=== PATIENT | female | born 1965 | race Caucasian/White ===

== ENCOUNTER 2017-11-17 15:51 | Emergency (ER) | payer MEDICARE, MEDICAID ==
[2017-11-17] MEDS ORDERED: HYDROCODONE/ACETAMINOPHEN 5-325 MG TABLET PO ONE (16:27)
--- NOTE | 2017-11-17 16:57 | RADIOLOGY REPORT (SQ) ---
EXAM DESCRIPTION: CT CHEST WITHOUT COMPLETED DATE/TIME: 11/17/2017 4:43 pm REASON FOR STUDY: fall OnXeralto for Blood clots/co of sob COMPARISON: CT lumbar spine same date TECHNIQUE: CT scan performed of the chest without intravenous contrast. Images reviewed with lung, soft tissue and bone windows. Reconstructed coronal and sagittal MPR images reviewed. All images st ored on PACS. All CT scanners at this facility use dose modulation, iterative reconstruction, and/or weight based d osing when appropriate to reduce radiation dose to as low as reasonably achievable (ALARA). [facility]: Dose Right [facility]: CareDose [facility]: Dose Right [facility]: Teradose 4D [facility]: Smart [employer] RADIATION DOSE: CT Rad equipment meets quality standard of care and radiation dose reduction techniq ues were employed. CTDIvol: 12.2 mGy. DLP: 478 mGy-cm. mGy. LIMITATIONS: No technical limitations. FINDINGS: LUNGS AND PLEURA: No masses, infiltrates, pneumothorax. No pleural effusions, calcificati ons. 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 No a denopathy or masses. Small hiatal hernia with distal esophageal wall thickening. HEART AND VASCULAR STRUCTURES: No aneurysm. No pericardial effusion. Duplicated superior vena cava UPPER ABDOMEN: Profound fatty infiltration of the liver. Mild splenomegaly. Post cholecystectomy THYROID AND OTHER SOFT TISSUES: No masses. No adenopathy. BONES: Healing right lateral 4th rib fracture with surrounding bony callus axial image 22. HARDWARE: None in the chest. OTHER: No other significant findings. IMPRESSION: No acute changes. Healing right lateral 4th rib fracture Profound fatty infiltration of the liver, post cholecystectomy, splenomegaly TECHNICAL DOCUMENTATION: JOB ID: [id number] Quality ID # [id number]: Final reports with documentation of one or more dose reduction techniques (e.g., Au tomated exposure control, adjustment of the mA and/or kV according to patient size, use of iterative reconstruction technique) 2010 [employer]- All Rights Reserved
--- NOTE | 2017-11-17 17:02 | RADIOLOGY REPORT (SQ) ---
EXAM DESCRIPTION: CT LUMBAR SPINE WITHOUT COMPLETED DATE/TIME: 11/17/2017 4:43 pm REASON FOR STUDY: hx of low back problems increased pain from fall COMPARISON: CT chest same date TECHNIQUE: Axial images acquired through the lumbar spine without intravenous contrast. Images revi ewed with lung, soft tissue and bone windows. Reconstructed coronal and sagittal MPR images reviewed . All images stored on PACS. All CT scanners at this facility use dose modulation, iterative reconstruction, and/or weight based d osing when appropriate to reduce radiation dose to as low as reasonably achievable (ALARA). [facility]: Dose Right [facility]: CareDose [facility]: Dose Right [facility]: Teradose 4D [facility]: [employer] RADIATION DOSE: 27.1 mGy. LIMITATIONS: None. FINDINGS: SEGMENTATION: Normal. No transitional anatomy. ALIGNMENT: Normal. VERTEBRAL BODIES: No fractures. No dislocation. No acute findings. DISCS: No significant protrusions. Study limited by lack of intrathecal contrast. PEDICLES, TRANSVERSE PROCESSES: An old healed right L3 transverse process fracture is evident on axia l image 46 FACETS, POSTERIOR ELEMENTS: No fractures. No dislocation. Bilateral facet arthropathy at L3-4, L4-5 , and L5-S1. HARDWARE: None in the spine. VISUALIZED RIBS: No fractures. SOFT TISSUES: No significant or acute finding in adjacent soft tissues. OTHER: No retroperitoneal hemorrhage IMPRESSION: No acute findings. Old right L3 transverse process healed fracture. TECHNICAL DOCUMENTATION: JOB ID: [id number] Quality ID # [id number]: Final reports with documentation of one or more dose reduction techniques (e.g., Au tomated exposure control, adjustment of the mA and/or kV according to patient size, use of iterative reconstruction technique) 2010 [employer]- All Rights Reserved
--- NOTE | 2017-11-17 17:34 | RADIOLOGY REPORT (SQ) ---
EXAM DESCRIPTION: KNEE RIGHT 3 VIEWS COMPLETED DATE/TIME: 11/17/2017 5:25 pm REASON FOR STUDY: fall COMPARISON: None. NUMBER OF VIEWS: Three views. TECHNIQUE: AP, lateral, and sunrise patella radiographic images acquired of the right knee. LIMITATIONS: None. FINDINGS: MINERALIZATION: Normal. BONES: No acute fracture or dislocation. No worrisome bone lesions. JOINT: No effusion. SOFT TISSUES: No soft tissue swelling. No radio-opaque foreign body. OTHER: No other significant finding. IMPRESSION: NEGATIVE STUDY OF THE RIGHT KNEE. NO RADIOGRAPHIC EVIDENCE OF ACUTE INJURY. TECHNICAL DOCUMENTATION: JOB ID: [id number] [employer]- All Rights Reserved
[2017-11-17 19:01] VITALS: BP 129/91
--- NOTE | 2017-11-17 19:04 | ER Document Report ---
ED Fall - General Chief Complaint: Knee Injury Stated Complaint: FALL/KNEE AND BACK PAIN Time Seen by Provider: 11/17/17 16:22 Mode of Arrival: Wheelchair Notes: Patient is a 52-year-old morbidly obese white female comes to emergency room complaining of sustaining a fall last evening. Patient states she lives in an apartment and she was coming down the steps of the apartment in her right knee gave out on her and she fell falling backwards landing on the low back and mid back area. Patient denies any loss of consciousness or hitting her head and states the pain is getting more severe. She also said she does move this area 2 weeks ago and has not established with a physician yet. She has a history of chronic back pain but it has not never been this bad. She also denies any neck pain. She has had no loss of urine or stool. States she has a history of hypertension and some psych problems as far as she is diagnosed with paranoid schizophrenia and depression. She also states she is on Xarelto for blood clots. TRAVEL OUTSIDE OF THE [place] IN LAST 30 DAYS: No - HPI Patient complains to provider of: Back pain Occurred: Yesterday Where: Home Context: Fell from standing Associated symptoms: denies: None, Lost consciousness, Dazed/confused, Seizure, Difficulty breathing, Difficulty walking, Became dizzy/fainted, Blood in stool, Other Location of injury/pain: Back, Knee, Lower extremity Quality of pain: Achy, Sharp Severity: Moderate Pain Level: 3 - Related data Allergies/Adverse Reactions: No Known Allergies Allergy (Unverified 11/17/17 15:56) Past Medical History - General Information source: Patient - Social History Smoking Status: Current Every Day Smoker Cigarette use (# per day): Yes - 2 packs a day Chew tobacco use (# tins/day): No Smoking Education Provided: Yes Frequency of alcohol use: None Drug Abuse: None Lives with: Spouse/Significant other Family History: Reviewed & Not Pertinent Patient has suicidal ideation: No Patient has homicidal ideation: No - Past Medical History Cardiac Medical History: Reports: Hx Hypertension Pulmonary Medical History: Reports: Hx Asthma Renal/ Medical History: Denies: Hx Peritoneal Dialysis Past Surgical History: Reports: Hx Section - x2, Hx Cholecystectomy Review of Systems - Review of Systems Constitutional: No symptoms reported EENT: No symptoms reported Cardiovascular: No symptoms reported Respiratory: No symptoms reported Gastrointestinal: No symptoms reported Genitourinary: No symptoms reported Female Genitourinary: No symptoms reported Musculoskeletal: Back pain, Joint pain, Muscle pain Skin: No symptoms reported Hematologic/Lymphatic: No symptoms reported Neurological/Psychological: No symptoms reported Physical Exam - Vital signs Vitals: Temp Pulse Resp BP Pulse Ox 97.6 F 101 H 20 147/90 H 99 11/17/17 15:59 11/17/17 15:59 11/17/17 15:59 11/17/17 15:59 11/17/17 15:59 Interpretation: Hypertensive, Tachycardic - General General appearance: Alert - Uncomfortable appearing - Respiratory Respiratory status: No respiratory distress Chest status: Nontender Breath sounds: Decreased air movement. No: Normal, Nonproductive cough, Productive cough, Rales, Rhonchi, Stridor, Wheezing, Other Chest palpation: Tender, Other - Physical exam patient's chest area shows that she has some reproducible tenderness on the right side laterally about the fourth fifth sixth or seventh rib. - Cardiovascular Rhythm: Tachycardia Heart sounds: Normal auscultation Murmur: No - Abdominal Inspection: Normal Distension: No distension Bowel sounds: Normal Tenderness: Nontender Organomegaly: No organomegaly - Back Back: Tender, Other - Physical exam patient's back shows she has some reproducible tenderness paravertebral E around the lower thoracic area and the upper to mid lumbar range. She has been mildly reproducible tenderness to palpation in the same areas. There is no sign of ecchymosis or abrasions. Patient has difficulty in rotation right and left as well as flexion and extension. This is all secondary to discomfort and pain. Patient has good DTRs in the lower extremities she has good vascular flow with good dorsalis pedal pulses noted. Patient also has positive straight leg raises bilaterally. This appears to be due to secondary to the low back discomfort from her fall. - Extremities General upper extremity: Normal inspection, Normal ROM General lower extremity: Tender. No: Normal inspection, Nontender, Edema, Normal color, Normal ROM, Normal strength, Normal temperature, Normal weight bearing, Lindsey's sign, Other Knee: Tender. No: Normal, Nontender, Abrasion, Deformity, Drawer's test instability - Examination patient's right knee shows no swelling or edema. There is no discoloration no ecchymosis no abrasions. There is no tenderness to palpation on the patella patient has no laxity in any direction. She has anterior drawer is also negative. Patient has a good popliteal pulse., Dislocation, Ecchymosis, Joint effusion, Instability, Laxity with valgus stress , Laxity with varus stress, Laceration, Pain with ROM, Patellar tendon intact, Popliteal fossa tender, Tender joint line, Unable to bear weight, Other - Neurological Neuro grossly intact: Yes Cognition: Normal Orientation: AAOx4 [place] Coma Scale Eye Opening: Spontaneous [place] Coma Scale Verbal: Oriented [place] Coma Scale Motor: Obeys Commands [place] Coma Scale Total: 15 Speech: Normal Motor strength normal: LUE, RUE, LLE, RLE Sensory: Normal - Skin Skin Temperature: Warm Skin Moisture: Dry Skin Color: Normal, [place], Other - Examination patient's torso without clothing and the way shows there to be no signs of ecchymosis, abrasions or any other acute findings. Course - Vital Signs Vital signs: Temp Pulse Resp BP Pulse Ox 98.6 F 99 21 H 129/91 H 95 11/17/17 19:01 11/17/17 19:01 11/17/17 19:01 11/17/17 19:01 11/17/17 19:01 - Diagnostic Test Radiology reviewed: Reports reviewed - X-ray of the knee was negative. CT of the chest had findings of an old right lateral fourth rib fracture that was healing. And the lumbar spine had an old healing transverse process fracture. - Transfer of Care Notes: 11/17/17 19:16 Patient is new in this vicinity and she comes in with a complaint of a fall. She admits to having a history of back problems and is seeing a physician in the other area of the [place] from. She has not been able to establish with a physician locally as of yet. Patient admitted to the fall a couple of weeks ago. Given this is her first visit here we will go ahead and give her a little pain medication for a couple of days and I have informed her that this will be on time we will do this. Discharge - Discharge Clinical Impression: Lumbosacral injury Qualifiers: Encounter type: initial encounter Qualified Code(s): S39.92XA - Unspecified injury of lower back, initial encounter Low back strain Qualifiers: Encounter type: initial encounter Qualified Code(s): S39.012A - Strain of muscle, fascia and tendon of lower back, initial encounter Thoracic myofascial strain Qualifiers: Encounter type: initial encounter Qualified Code(s): S29.019A - Strain of muscle and tendon of unspecified wall of thorax, initial encounter Contusion of thoracic wall Qualifiers: Encounter type: initial encounter Condition: Good Disposition: HOME, SELF-CARE Instructions: Ice & Elevation ([facility]), Suspected Internal Knee Injury ([facility]), Oral Narcotic Medication ([facility]), Sprained Knee ([facility]) Additional Instructions: Home and rest. Ice to all parts of the body that hurt 3 times a day. Continue all your other medications as prescribed by your physicians.I am writing you a few pain pills and I am not writing it with Tyleol because of your liver. This will be the only time we will do this out of ER. Establish with a physician as soon as possible. Should you have any concerns or problems return to ER for recheck. Prescriptions: Cyclobenzaprine HCl [Flexeril 10 mg Tablet] 10 mg PO TIDP PRN #21 tablet PRN Reason: Oxycodone HCl [Oxycontin Ir 5 Mg Tablet] 1 - 2 mg PO Q4H PRN #15 tablet PRN Reason: For Pain Forms: Elevated Blood Pressure Referrals: AL BROWN MD [Primary Care Provider] - Follow up as needed
== END 2017-11-17 19:30 | disposition home or self-care (01) ==
LOC: ER 15:51
DX: S39.92XA Unspecified injury of lower back, initial encounter (principal); S39.012A Strain of muscle, fascia and tendon of lower back, initial encounter; S29.019A Strain of muscle and tendon of unspecified wall of thorax, initial encounter; M25.569 Pain in unspecified knee; W10.9XXA Fall (on) (from) unspecified stairs and steps, initial encounter; F17.210 Nicotine dependence, cigarettes, uncomplicated; I10 Essential (primary) hypertension
CPT/HCPCS: 99284; 73562; 71250; 72131; A9270

== ENCOUNTER 2017-11-21 16:31 | Emergency (ER) | payer MEDICARE, MEDICAID ==
--- NOTE | 2017-11-21 17:12 | ER Document Report ---
ED Medical Screen (RME) - General Chief Complaint: Rib Pain Stated Complaint: FALL/RIB AND BACK PAIN Time Seen by Provider: 11/21/17 17:09 Mode of Arrival: Ambulatory Information source: Patient Notes: Pt returns today for pain medication. Treated on the for a broken rib, history of back pain, liver pain. No recent injury. Denies fever. Reports trouble holding her bladder, numbness, diarrhea for 5 months. Hurt her back by falling years ago. Has appointment with [facility] TRAVEL OUTSIDE OF THE [place] IN LAST 30 DAYS: No - Related Data Allergies/Adverse Reactions: No Known Allergies Allergy (Verified 11/21/17 16:33) Past Medical History - Past Medical History Cardiac Medical History: Reports: Hx Hypertension Pulmonary Medical History: Reports: Hx Asthma Renal/ Medical History: Denies: Hx Peritoneal Dialysis Past Surgical History: Reports: Hx Section - x2, Hx Cholecystectomy Physical Exam - Vital signs Vitals: Temp Pulse Resp BP Pulse Ox 98.5 F 126 H 18 155/99 H 95 11/21/17 16:36 11/21/17 16:36 11/21/17 16:36 11/21/17 16:36 11/21/17 16:36 Course - Vital Signs Vital signs: Temp Pulse Resp BP Pulse Ox 98.5 F 126 H 18 155/99 H 95 11/21/17 16:36 11/21/17 16:36 11/21/17 16:36 11/21/17 16:36 11/21/17 16:36
--- NOTE | 2017-11-21 19:07 | ER Document Report ---
ED General - General Chief Complaint: Rib Pain Stated Complaint: FALL/RIB AND BACK PAIN Time Seen by Provider: 11/21/17 17:09 Mode of Arrival: Ambulatory TRAVEL OUTSIDE OF THE [place] IN LAST 30 DAYS: No - Related Data Allergies/Adverse Reactions: No Known Allergies Allergy (Verified 11/21/17 16:33) Past Medical History - General Information source: Patient - Social History Family History: Reviewed & Not Pertinent - Past Medical History Cardiac Medical History: Reports: Hx Hypertension Pulmonary Medical History: Reports: Hx Asthma Renal/ Medical History: Denies: Hx Peritoneal Dialysis Past Surgical History: Reports: Hx Section - x2, Hx Cholecystectomy Physical Exam - Vital signs Vitals: Temp Pulse Resp BP Pulse Ox 98.5 F 126 H 18 155/99 H 95 11/21/17 16:36 11/21/17 16:36 11/21/17 16:36 11/21/17 16:36 11/21/17 16:36 Course - Vital Signs Vital signs: Temp Pulse Resp BP Pulse Ox 98.5 F 126 H 18 155/99 H 95 11/21/17 16:36 11/21/17 16:36 11/21/17 16:36 11/21/17 16:36 11/21/17 16:36
--- NOTE | 2017-11-21 19:55 | ER Document Report ---
ED General - General Chief Complaint: Rib Pain Stated Complaint: FALL/RIB AND BACK PAIN Time Seen by Provider: 11/21/17 17:09 Mode of Arrival: Ambulatory Notes: Patient is a 52 year old female who presents with left lateral rib pain that started after she fell on 11/17/17. She states she was seen here on the and was diagnosed with rib fracture as well as old back fractures. She state she just moved to this area and has an appointment with a primary doctor at [facility] on 11/30/17. She state she called this morning to try and get an appointment sooner but was unable to. She is out of her pain medication and is requesting more. She denies any further fever, chills, difficulty breathing, SOB, chest pain, n/v/d. She does endorse compliance with her incentive spirometer. TRAVEL OUTSIDE OF THE [place] IN LAST 30 DAYS: No - Related Data Allergies/Adverse Reactions: No Known Allergies Allergy (Verified 11/21/17 16:33) Past Medical History - General Information source: Patient - Social History Smoking Status: Unknown if Ever Smoked Family History: Reviewed & Not Pertinent Patient has suicidal ideation: No Patient has homicidal ideation: No - Past Medical History Cardiac Medical History: Reports: Hx Hypertension Pulmonary Medical History: Reports: Hx Asthma Renal/ Medical History: Denies: Hx Peritoneal Dialysis Past Surgical History: Reports: Hx Section - x2, Hx Cholecystectomy Review of Systems - Review of Systems Constitutional: See HPI EENT: No symptoms reported Cardiovascular: No symptoms reported Respiratory: No symptoms reported Gastrointestinal: No symptoms reported Genitourinary: No symptoms reported Female Genitourinary: No symptoms reported Musculoskeletal: See HPI Skin: No symptoms reported Hematologic/Lymphatic: See HPI Neurological/Psychological: No symptoms reported Physical Exam - Vital signs Vitals: Temp Pulse Resp BP Pulse Ox 98.5 F 126 H 18 155/99 H 95 11/21/17 16:36 11/21/17 16:36 11/21/17 16:36 11/21/17 16:36 11/21/17 16:36 - Notes Notes: PHYSICAL EXAM: CONSTITUTIONAL: Alert and oriented, well-appearing and in no acute distress. Speaking in full sentences without difficulty. No hypoxia or tachypnea. HENT: Normocephalic, atraumatic. Trachea midline. Uvula midline. Moist mucous membranes. EYES: Pupils equal round and reactive to light, EOM intact. Sclera anicteric, conjunctiva are normal. No entrapment. NECK: supple without lymphadenopathy. No midline tenderness or paraspinous muscle spasms. No step-offs or deformities. ROM intact. HEART: Regular rate and rhythm without murmurs. LUNGS: CTAB and equal. No wheezes, rales or rhonchi. TTP over left lateral ribs in mid-axillary region without step-offs or deformity. GI: Normactive bowel sounds. Nontender, non-distended. No organomegaly. no CVAT. BACK: TTP to paralumbar musculature without midline spinal tenderness, step- offs or deformities, no paraspinous spasm, 5+/5 strengths, DTRs 2+, SLR -. EXTREMITIES: Normal range of motion, no pitting edema. No cyanosis. Cap Refill < 3 seconds. NEURO: Cranial nerves grossly intact. Normal sensory/motor exams. PSYCH: Normal mood, normal affect. SKIN: Warm and dry. Normal turgor. No rashes or lesions noted. Course - Re-evaluation Re-evalutation: 11/21/17 19:55 Patient seen and examined. Mild tachycardia noted but no hypoxia or tachypnea. Speaking in full sentences without difficulty. Lungs CTAB. Feel the tachycardia is most likely due to pain, will obtain CXR however and give pain medication and monitor. 11/21/17 21:15 Signed out patient due to end of shift to Melany Osman NP. Discussed case, current management, all pending lab and imaging studies as well as medications pending. she will complete disposition. - Vital Signs Vital signs: Temp Pulse Resp BP Pulse Ox 98.4 F 90 16 148/92 H 97 11/21/17 21:17 11/21/17 21:17 11/21/17 21:17 11/21/17 21:17 11/21/17 21:17 - Diagnostic Test Radiology reviewed: Image reviewed, Reports reviewed Discharge - Discharge Clinical Impression: Rib fractures Qualifiers: Encounter type: subsequent encounter Rib fracture type: multiple ribs Fracture type: closed Laterality: left Fracture healing: with routine healing Qualified Code(s): S22.42XD - Multiple fractures of ribs, left side, subsequent encounter for fracture with routine healing Lumbosacral injury Qualifiers: Encounter type: subsequent encounter Qualified Code(s): S39.92XD - Unspecified injury of lower back, subsequent encounter Condition: Stable Disposition: HOME, SELF-CARE Additional Instructions: Chronic Pain Control Stress, inactivity, and depression make pain more severe regardless of the cause of the pain. Stress and poor physical condition can cause pain such as headaches and backache. Relaxation: Rest in a quiet place with your eyes closed for 20 minutes twice daily. Concentrate on a pleasant image, or simply "feel" your breathing. Clear your mind. Stress management: Deal with your "stressors." Either take action, or eliminate the stressor from your life. Don't let things hang over you. Accept those things you can't change. Nutrition: Eat small, balanced meals -- don't skip, don't overeat. Meals should be high-carbohydrate, low-sugar, low-fat. Exercise: Exercise helps painful conditions and eases stress. Get 30 minutes of moderate exercise, five days a week. Do an activity that does not flare your pain. Precautions: Pain which continues to disrupt daily activities, or which changes in nature, requires a medical evaluation. Pain Clinic referral is available. We do not manage chronic pain in the Emergency Department. We will try to appropriately help you through an acute flare of your chronic painful condition , but for on-going chronic pain that does not improve, you will need to see your private doctor or [facility]. We do not provide repeated medication management of chronic painful conditions. If you wish, we can provide the name of local pain management physicians. Return if symptoms worsen. Follow up with the provider of your choice as soon as possible. Prescriptions: Oxycodone HCl [Oxycontin Ir 5 Mg Tablet] 1 tab PO Q6HP PRN #12 tablet PRN Reason: For Pain Forms: Elevated Blood Pressure Referrals: LALIT CHACKO MD [Primary Care Provider] - Follow up in 3-5 days
[2017-11-21] MEDS ORDERED: OXYCODONE HCL IR 5 MG TABLET PO ONE (20:00)
[2017-11-21 21:18] VITALS: BP 148/92
--- NOTE | 2017-11-21 21:29 | RADIOLOGY REPORT (SQ) ---
EXAM DESCRIPTION: CHEST PA/LAT COMPLETED DATE/TIME: 11/21/2017 8:28 pm REASON FOR STUDY: rib pain COMPARISON: None. EXAM PARAMETERS: NUMBER OF VIEWS: two views TECHNIQUE: Digital Frontal and Lateral radiographic views of the chest acquired. RADIATION DOSE: NA LIMITATIONS: none FINDINGS: LUNGS AND PLEURA: No opacities, masses or pneumothorax. No pleural effusion. MEDIASTINUM AND HILAR STRUCTURES: No masses or contour abnormalities. HEART AND VASCULAR STRUCTURES: Heart normal size. No evidence for failure. BONES: No acute findings. HARDWARE: Clips right upper quadrant post cholecystectomy OTHER: No other significant finding. IMPRESSION: NO SIGNIFICANT RADIOGRAPHIC FINDING IN THE CHEST. TECHNICAL DOCUMENTATION: JOB ID: [id number] [employer]- All Rights Reserved
== END 2017-11-21 22:18 | disposition home or self-care (01) ==
LOC: ER 16:31
DX: S22.42XD Multiple fractures of ribs, left side, subsequent encounter for fracture with routine healing (principal); S39.92XD Unspecified injury of lower back, subsequent encounter; R07.81 Pleurodynia; M54.9 Dorsalgia, unspecified; W19.XXXD Unspecified fall, subsequent encounter
CPT/HCPCS: 99283; 71046; A9270

== ENCOUNTER 2018-04-14 21:06 | Emergency (ER) | payer MEDICARE, MEDICAID ==
[2018-04-14] MEDS ORDERED: RISPERIDONE 1 MG TABLET PO ONE (23:02)
--- NOTE | 2018-04-14 23:06 | ER Document Report ---
ED General - General Chief Complaint: Psych Problem Stated Complaint: HEARING VOICES Time Seen by Provider: 04/14/18 22:09 Notes: Patient is a 52-year-old female with a past medical history of schizophrenia currently who takes risperidone to manage her symptoms she reports with auditory hallucinations for the past 24 hours. Patient reports that typically her schizophrenia is very well controlled with this medication and admits to occasionally missing it but not in the recent past. He states the day she was lying in bed and she heard the sounds of a baby laughing or giggling. She states when she tried to sit up to see where the noise is coming from she could not find anything and also felt like she could hardly get out of bed. She states that since that time her symptoms have resolved and she is no longer hearing any more auditory hallucinations. She denies that the auditory hallucinations are commanding. She denies any suicidal or homicidal ideation. She is scheduled to see her psychiatrist on 27 April came to the emergency department due to concerns that she name may need medication adjustments before that date. TRAVEL OUTSIDE OF THE [place] IN LAST 30 DAYS: No - Related Data Allergies/Adverse Reactions: No Known Allergies Allergy (Verified 11/21/17 16:33) Past Medical History - General Information source: Patient - Social History Smoking Status: Current Every Day Smoker Chew tobacco use (# tins/day): No Frequency of alcohol use: None Drug Abuse: None Lives with: Spouse/Significant other Family History: Reviewed & Not Pertinent Patient has suicidal ideation: No Patient has homicidal ideation: No - Past Medical History Cardiac Medical History: Reports: Hx Hypertension Pulmonary Medical History: Reports: Hx Asthma Renal/ Medical History: Denies: Hx Peritoneal Dialysis GI Medical History: Reports: Hx Gastroesophageal Reflux Disease Psychiatric Medical History: Reports: Hx Depression, Hx Schizophrenia Past Surgical History: Reports: Hx Section - x2, Hx Cholecystectomy Review of Systems - Review of Systems Notes: Constitutional: Negative for fever. HENT: Negative for sore throat. Eyes: Negative for visual changes. Cardiovascular: Negative for chest pain. Respiratory: Negative for shortness of breath. Gastrointestinal: Negative for abdominal pain, vomiting or diarrhea. Genitourinary: Negative for dysuria. Musculoskeletal: Negative for back pain. Skin: Negative for rash. Neurological: Negative for headaches, weakness or numbness. 10 point ROS negative except as marked above and in HPI. Physical Exam - Vital signs Vitals: Temp Pulse Resp BP Pulse Ox 99.0 F 95 16 133/78 H 97 04/14/18 21:35 04/14/18 21:35 04/14/18 21:35 04/14/18 21:35 04/14/18 21:35 Interpretation: Normal Notes: PHYSICAL EXAMINATION: GENERAL: Well-appearing, well-nourished and in no acute distress. HEAD: Atraumatic, normocephalic. EYES: Pupils equal round and reactive to light, extraocular movements intact, sclera anicteric, conjunctiva are normal. ENT: nares patent, oropharynx clear without exudates. Moist mucous membranes. NECK: Normal range of motion, supple without lymphadenopathy LUNGS: Breath sounds clear to auscultation bilaterally and equal. No wheezes rales or rhonchi. HEART: Regular rate and rhythm without murmurs ABDOMEN: Soft, nontender, normoactive bowel sounds. No guarding, no rebound. No masses appreciated. EXTREMITIES: Normal range of motion, no pitting or edema. No cyanosis. NEUROLOGICAL: No focal neurological deficits. Moves all extremities spontaneously and on command. PSYCH: Normal mood, normal affect. SKIN: Warm, Dry, normal turgor, no rashes or lesions noted. Course - Re-evaluation Re-evalutation: 04/14/18 23:05 Patient presents with having auditory hallucinations today. She has a known history of schizophrenia although states that she has otherwise been well controlled over the past several years. She does take risperidone 3 mg nightly. She denies any acute suicidal or homicidal ideation. She denies any commands and auditory hallucinations and denies any other concerns other than these new onset hallucinations. No visual hallucinations. The patient is alert , oriented, has appropriate insight, mood and judgment. She is calm and cooperative and is clearly forward thinking and trying to address this issue quickly before her psychiatric appointment on April 27. I have changed her to having a dosing of risperidone 2 mg twice daily and have encouraged her to begin this regiment immediately. I have represcribed risperidone and have made this medication change clear to the patient. At this time will discharge with return precautions and follow-up recommendations. Verbal discharge instructions given a the bedside and opportunity for questions given. Medication warnings reviewed. Patient is in agreement with this plan and has verbalized understanding of return precautions and the need for primary care follow-up in the next 24-72 hours. - Vital Signs Vital signs: Temp Pulse Resp BP Pulse Ox 98.1 F 93 16 122/77 98 04/14/18 23:24 04/14/18 23:24 04/14/18 23:24 04/14/18 23:24 04/14/18 23:24 Discharge - Discharge Clinical Impression: Auditory hallucinations Schizophrenia Qualifiers: Schizophrenia type: unspecified Qualified Code(s): F20.9 - Schizophrenia, unspecified Condition: Good Disposition: HOME, SELF-CARE Additional Instructions: Please change your risperidone from 3 mg nightly to 2 mg twice daily. I would advise you to take this medicine in the morning and then again before you go to bed. Please follow-up with your psychiatrist as scheduled. Please return if you have thoughts of wanting to hurt yourself, hurt others, or have any other symptoms that are concerning to you. Prescriptions: Risperidone [Risperdal 1 mg Tablet] 2 mg PO Q12 #120 tablet
[2018-04-14 23:25] VITALS: BP 122/77
--- NOTE | 2018-04-15 08:47 | EKG REPORT ---
SEVERITY:- ABNORMAL ECG - SINUS RHYTHM BORDERLINE T ABNORMALITIES, ANT-LAT LEADS PROLONGED QT INTERVAL : Confirmed by: Luis Shields MD 15-Apr-2018 08:46:32
== END 2018-04-14 23:25 | disposition home or self-care (01) ==
LOC: ER 21:06
DX: F20.9 Schizophrenia, unspecified (principal); Z79.899 Other long term (current) drug therapy; I10 Essential (primary) hypertension; J45.909 Unspecified asthma, uncomplicated; F17.200 Nicotine dependence, unspecified, uncomplicated
CPT/HCPCS: 93005; 99284; 93010; A9270

== ENCOUNTER 2018-04-16 15:04 | Emergency (ER) | payer MEDICARE, MEDICAID ==
[2018-04-16] MEDS ORDERED: NORMAL SALINE 1000 ML 1,000 ML IV ONE ×2 (16:03→16:36)
[2018-04-16] MEDS ORDERED: METOCLOPRAMIDE HCL INJ/PF 10 MG/2 ML SDV IV ONE (16:03)
--- NOTE | 2018-04-16 16:04 | ER Document Report ---
ED Medical Screen (RME) - General Chief Complaint: Abdominal Pain Stated Complaint: ABDOMINAL PAIN,HEAD PAIN Time Seen by Provider: 04/16/18 15:56 Mode of Arrival: Ambulatory Information source: Patient Notes: 52-year-old female history of schizophrenia who is here 2 days prior for mental health issues presents with complaints of headache this been ongoing for a few days and then abdominal pain started yesterday. Patient states it hurts everywhere. Denies any fevers or chills I have greeted and performed a rapid initial assessment of this patient. A comprehensive ED assessment and evaluation of the patient, analysis of test results and completion of the medical decision making process will be conducted by additional ED providers. PHYSICAL EXAMINATION: GENERAL: Well-appearing, well-nourished and in no acute distress. HEAD: Atraumatic, normocephalic. EYES: Pupils equal round extraocular movements intact, conjunctiva are normal. ENT: Nares patent NECK: Normal range of motion LUNGS: No respiratory distress Musculoskeletal: Normal range of motion NEUROLOGICAL: Normal speech, normal gait. PSYCH: Normal mood, normal affect. SKIN: Warm, Dry, normal turgor, no rashes or lesions noted. . TRAVEL OUTSIDE OF THE [place] IN LAST 30 DAYS: No - Related Data Allergies/Adverse Reactions: No Known Allergies Allergy (Verified 04/16/18 15:05) Past Medical History - Social History Chew tobacco use (# tins/day): No Frequency of alcohol use: None Drug Abuse: None - Past Medical History Cardiac Medical History: Reports: Hx Hypertension Pulmonary Medical History: Reports: Hx Asthma Renal/ Medical History: Denies: Hx Peritoneal Dialysis GI Medical History: Reports: Hx Gastroesophageal Reflux Disease Psychiatric Medical History: Reports: Hx Depression, Hx Schizophrenia Past Surgical History: Reports: Hx Section - x2, Hx Cholecystectomy Physical Exam - Vital signs Vitals: Temp Pulse Resp BP Pulse Ox 98.0 F 90 14 150/92 H 100 04/16/18 15:12 04/16/18 15:12 04/16/18 15:12 04/16/18 15:12 04/16/18 15:12 Course - Vital Signs Vital signs: Temp Pulse Resp BP Pulse Ox 98.0 F 90 14 150/92 H 100 04/16/18 15:12 04/16/18 15:12 04/16/18 15:12 04/16/18 15:12 04/16/18 15:12
--- NOTE | 2018-04-16 16:37 | ER Document Report ---
ED General - General Chief Complaint: Abdominal Pain Stated Complaint: ABDOMINAL PAIN,HEAD PAIN Time Seen by Provider: 04/16/18 15:56 Mode of Arrival: Ambulatory TRAVEL OUTSIDE OF THE [place] IN LAST 30 DAYS: No - HPI Notes: 52-year-old female with a past medical history of schizophrenia, IBS, GERD, PE in November 2017, newly diagnosed stomach cancer presents to emergency room with complaints of right upper quadrant, left upper quadrant abdominal pain, LLQ, nausea, vomiting and headache that started yesterday. Patient reports pain is worse after eating. reports some SOB, but this has been occurring x 3 months, worse over last 2 days. Denies any fevers or chills. Reports pain is 6 out of 10, throbbing achy. Patient also reports she is been belching in the last day. Patient was recently seen on the ER for schizophrenia, Risperdal was increased from 3 mg daily to 2 mg twice daily by Dr. Rosas Sandoval. Last bowel movement was this morning, denies any coffee-ground emesis or black tarry stools. Patient is not on a blood thinner, was recently taken off Xarelto by her primary care doctor Dr. Pedroza. patient still requires a biopsy of her stomach cancer per her report, she has an appointment coming up with her foot tender, Dr. Sanford, with a foot tender in [facility]. denies fevers, chills, chest pain,palpitations, diarrhea, hematuria ,blurred vision, double vision, loss of vision, speech changes, LH, dizziness, syncope, headaches, wheezing, ST, URI, neck pain, weakness, bowel or bladder dysfunction, saddle anesthesia, numbness or tingling in bilateral upper or lower extremities equally, muscle paralysis, weakness in bilateral upper or lower extremities equally or rash. Denies IV drug use. - Related Data Allergies/Adverse Reactions: No Known Allergies Allergy (Verified 04/16/18 15:05) Past Medical History - General Information source: Patient, Relative - - Social History Smoking Status: Current Every Day Smoker Chew tobacco use (# tins/day): No Frequency of alcohol use: None Drug Abuse: None Family History: Reviewed & Not Pertinent Patient has suicidal ideation: No Patient has homicidal ideation: No - Past Medical History Cardiac Medical History: Reports: Hx Hypertension Pulmonary Medical History: Reports: Hx Asthma Renal/ Medical History: Denies: Hx Peritoneal Dialysis GI Medical History: Reports: Hx Gastroesophageal Reflux Disease Psychiatric Medical History: Reports: Hx Depression, Hx Schizophrenia Past Surgical History: Reports: Hx Section - x2, Hx Cholecystectomy Review of Systems - Review of Systems Constitutional: See HPI EENT: No symptoms reported Cardiovascular: No symptoms reported Respiratory: No symptoms reported Gastrointestinal: See HPI Genitourinary: No symptoms reported Female Genitourinary: No symptoms reported Musculoskeletal: No symptoms reported Skin: No symptoms reported Hematologic/Lymphatic: No symptoms reported Neurological/Psychological: No symptoms reported Physical Exam - Vital signs Vitals: Temp Pulse Resp BP Pulse Ox 98.0 F 90 14 150/92 H 100 04/16/18 15:12 04/16/18 15:12 04/16/18 15:12 04/16/18 15:12 04/16/18 15:12 - Notes Notes: PHYSICAL EXAMINATION: GENERAL: Chronically ill-appearing, well-nourished and in no acute distress. HEAD: Atraumatic, normocephalic. EYES: Pupils equal round and reactive to light, extraocular movements intact, conjunctiva are normal. ENT: Nares patent, oropharynx clear without exudates. Moist mucous membranes. NECK: Normal range of motion, supple without lymphadenopathy LUNGS: Breath sounds clear to auscultation bilaterally and equal. No wheezes rales or rhonchi. HEART: Regular rate and rhythm without murmurs ABDOMEN: Soft, nondistended abdomen. Right upper quadrant, epigastric with periumbilical tenderness. No guarding, no rebound. No masses appreciated. Female : deferred Musculoskeletal: Normal range of motion, no pitting or edema. No cyanosis. NEUROLOGICAL: Cranial nerves grossly intact. Normal speech, normal gait. Normal sensory, motor exams PSYCH: Normal mood, normal affect. SKIN: Warm, Dry, normal turgor, no rashes or lesions noted. Course - Re-evaluation Re-evalutation: 04/16/18 17:15 52-year-old female who is afebrile, vitals stable and in no distress. CBC shows slight neutropenia, no anemia. This likely could be contributed to her new diagnosis of stomach cancer, which still requires a biopsy by her foot tender. Consulted with mental health regarding increased Risperdal dose to be the cause of her headache, nausea and vomiting with abdominal pain, they advised that her symptoms are unlikely due to her increase in Risperdal 1 mg. CMP with creatinine of 0.61, potassium 3.6, lactic acid 2.8. No hepatic abnormalities noted on CMP. Urinalysis shows slight glucose with hematuria. Cardiac enzymes unremarkable. EKG non-STEMI, heart rate 95, normal sinus rhythm. CTA negative for PE no aortic aneurysm or dissection, noted small hiatal hernia with severe fatty infiltration of the liver. CT abdomen pelvis with IV contrast shows patient has questionable thickening of the right wall of the right colon versus near nondistention along with splenomegaly. Discussed the patient will treat her for colitis, advised take antibiotics with food. Will place her on ciprofloxacin and Flagyl. Follow-up with her foot tender and primary care provider within 3 days. I have reevaluated this patient multiple times and no significant life threatening changes, no signs of toxicity, sepsis or peritonitis are noted. The patient and I have discussed the diagnosis and risks, and we agree with discharging home and close follow-up. Discussed case with Dr. Gastelum, ER attending, and is appropriate to treat patient with colitis, follow-up with her and her neurologist and primary care doctor when appropriate antibiotics. We also discussed returning to the Emergency Department immediately if new or worsening symptoms occur with the understanding that symptoms and presentations can change. At this time will discharge with return precautions and follow-up recommendations. Verbal discharge instructions given a the bedside and opportunity for questions given. We have discussed the symptoms which are most concerning (shortness of breath, chest pain, neck pain, back pain, Bloody stool , fever, changing or worsening pain, vomiting that necessitate immediate return. Medication warnings reviewed. Patient is in agreement with this plan and has verbalized understanding of return precautions and the need for primary care follow-up in the next 24-72 hours. Patient verbalized understanding of plan of care and agree with plan of care. - Vital Signs Vital signs: Temp Pulse Resp BP Pulse Ox 98.0 F 90 14 150/92 H 100 04/16/18 15:12 04/16/18 15:12 04/16/18 15:12 04/16/18 15:12 04/16/18 15:12 - Laboratory Result Diagrams: 04/16/18 16:28 04/16/18 16:28 Laboratory results interpreted by me: 04/16/18 04/16/18 04/16/18 16:28 16:28 16:28 WBC 2.6 L Hgb 11.2 L Hct 34.3 L RDW 17.0 H Plt Count 103 L Absolute Lymphocytes 0.4 L Sodium 145.7 H BUN 6 L Glucose 115 H Lactic Acid 2.8 H Calcium 8.2 L AST 42 H Urine Glucose (UA) Urine Blood 04/16/18 17:26 WBC Hgb Hct RDW Plt Count Absolute Lymphocytes Sodium BUN Glucose Lactic Acid Calcium AST Urine Glucose (UA) 50 H Urine Blood SMALL H Discharge - Discharge Clinical Impression: Colitis, Steatohepatitis, Splenomegaly Abdominal pain Qualifiers: Abdominal location: generalized Qualified Code(s): R10.84 - Generalized abdominal pain Condition: Good Disposition: HOME, SELF-CARE Instructions: Antispasmodics ([facility]), Abdominal Pain ([facility]), Colitis, Nonspecific ([facility]), Ciprofloxacin ([facility]), Metronidazole ([facility]) Additional Instructions: Colitis, Nonspecific Colitis is an inflammatory disease of the large intestine which affects the lining of the bowel. The cause is uncertain, though it is often caused by an infection. In some cases, the symptoms resolve and can return again in the future. Colitis is characterized by abdominal pain, often nausea and vomiting, and either diarrhea or difficulty with bowel movements. Sometimes blood will be present in the bowel movements. Fever is often present as well. Milder cases of colitis can be managed as an outpatient with medications for nausea and vomiting and pain, oral fluid therapy, and perhaps antibiotics, if a bacterial origin is suspected. Antidiarrhea medicine should usually be avoided in colitis. If you have increasing abdominal pain, repeated vomiting, fever, rectal bleeding, or worsening diarrhea, you should return for re-evaluation. Follow-up with a foot tender within 1-2 days with primary care provider within 3 days. Please return to emergency department immediately if you have worsening of your pain, shortness of breath, vomiting, become unable to exert yourself due to pain or difficulty breathing, you pass out, or have any pain that radiates into your arms, jaw, or back. Please also return if you have any additional symptoms that are concerning to you. As we have discussed, the most important thing is lifestyle changes. You need to avoid smoking, sodas, tea, coffee, alcohol, spicy foods, and acidic foods such as citrus fruits, tomato based products, berries, and most fruit juices. Return immediately for any new or worsening symptoms. Follow up with primary care provider, call tomorrow to make followup appointment. Forms: Return to Work Referrals: AL BROWN MD [Primary Care Provider] - Follow up in 3-5 days BERNARDA SANFORD MD [ACTIVE STAFF] - Follow up tomorrow
[2018-04-16] MEDS ORDERED: DIPHENHYDRAMINE HCL 50 MG/ML VIAL IV ONE (16:38)
[2018-04-16 16:39] LABS: ABSOLUTE LYMPHOCYTES (AUTO) 0.4 10^3/uL (0.5-4.7); ABSOLUTE MONOCYTES (AUTO) 0.3 10^3/uL (0.1-1.4); ABSOLUTE NEUT (AUTO) 1.9 10^3/uL (1.7-8.2); BASOPHILS % (AUTO) 0.4 % (0-2); HEMATOCRIT 34.3 % (36.0-47.0); HEMOGLOBIN 11.2 g/dL (12.0-15.5); LYMPHOCYTES % (AUTO) 14.4 % (13-45); MEAN CORPUSCULAR HEMOGLOBIN 27.9 pg (27.0-33.4); MEAN CORPUSCULAR HGB CONC 32.5 g/dL (32.0-36.0); MEAN CORPUSCULAR VOLUME 86 fl (80-97); MONOCYTES % (AUTO) 9.7 % (3-13); PLATELET COUNT 103 10^3/uL (150-450); SEGMENTED NEUTROPHILS % (AUTO) 74.5 % (42-78); TOTAL CELLS COUNTED % (AUTO) 100 %; WHITE BLOOD COUNT 2.6 10^3/uL (4.0-10.5)
[2018-04-16 16:57] LABS: ALANINE AMINOTRANSFERASE 37 U/L (9-52); ALBUMIN 3.8 g/dL (3.5-5.0); ALKALINE PHOSPHATASE 104 U/L (38-126); ANION GAP 15 (5-19); ASPARTATE AMINO TRANSFERASE 42 U/L (14-36); BILIRUBIN,DIRECT 0.3 mg/dL (0.0-0.4); BILIRUBIN,TOTAL 0.5 mg/dL (0.2-1.3); BLOOD UREA NITROGEN 6 mg/dL (7-20); CALCIUM 8.2 mg/dL (8.4-10.2); CARBON DIOXIDE 27 mmol/L (22-30); CHLORIDE 104 mmol/L (98-107); GLUCOSE 115 mg/dL (75-110); POTASSIUM 3.6 mmol/L (3.6-5.0); SODIUM 145.7 mmol/L (137-145); TOTAL PROTEIN 6.6 g/dL (6.3-8.2)
[2018-04-16 17:36] LABS: APPEARANCE,URINE CLEAR; BILIRUBIN,URINE NEGATIVE (NEGATIVE); COLOR,URINE YELLOW; GLUCOSE, URINE 50 mg/dL (NEGATIVE); KETONES,URINE NEGATIVE (NEGATIVE); LEUKOCYTE ESTERASE,URINE NEGATIVE (NEGATIVE); NITRITE,URINE NEGATIVE (NEGATIVE); PROTEIN,URINE NEGATIVE (NEGATIVE); URINE SPECIFIC GRAVITY 1.005; UROBILINOGEN,URINE NEGATIVE mg/dL (<2.0)
[2018-04-16 18:01] LABS: CREATINE KINASE MB 0.38 ng/mL (<4.55)
[2018-04-16 18:02] LABS: TROPONIN I < 0.012 ng/mL
--- NOTE | 2018-04-16 18:40 | RADIOLOGY REPORT (SQ) ---
EXAM DESCRIPTION: CTA CHEST COMPLETED DATE/TIME: 04/16/2018 6:27 pm REASON FOR STUDY: sob with hx of pe COMPARISON: 11/17/2017. TECHNIQUE: CT scan of the chest performed using helical scanning technique with dynamic intravenous contrast injection. Images reviewed with lung, soft tissue and bone windows. Reconstructed coronal and sagittal MPR images reviewed. Additional 3 dimensional post-processing performed to develop Maximal Intensity Projection images (DE P). All images stored on PACS. All CT scanners at this facility use dose modulation, iterative reconstruction, and/or weight based d osing when appropriate to reduce radiation dose to as low as reasonably achievable (ALARA). [facility]: Dose Right [facility]: CareDose [facility]: Dose Right [facility]: Teradose 4D [facility]: [employer] CONTRAST TYPE AND DOSE: 100 mL Isovue 370- low osmolar. Contrast bolus adequate for pulmonary arteries and aorta. RENAL FUNCTION: BUN 6 creatinine 0.67. RADIATION DOSE: . LIMITATIONS: None. FINDINGS: LUNGS AND PLEURA: No masses, infiltrates, pneumothorax. No pleural effusions, calcificati ons. AORTA AND GREAT VESSELS: No aneurysm. No dissection. HEART: No pericardial effusion. No significant coronary artery calcifications. PULMONARY ARTERIES: No emboli visualized in the main pulmonary arteries or the segmental branches. HILAR AND MEDIASTINAL STRUCTURES: No identified masses or abnormal nodes. HARDWARE: None in the chest. UPPER ABDOMEN: Small hiatal hernia. Severe fatty infiltration of the liver. Limited exam. THYROID AND OTHER SOFT TISSUES: No masses. No adenopathy. BONES: No acute or significant finding. 3D MIPS: Confirm above findings. OTHER: No other significant finding. IMPRESSION: 1. NORMAL CTA OF THE CHEST. NO PULMONARY EMBOLI. NO AORTIC ANEURYSM OR DISSECTION. 2. SMALL HIATAL HERNIA. SEVERE FATTY INFILTRATION OF THE LIVER. COMMENT: Quality ID # [id number]: Final reports with documentation of one or more dose reduction techniques (e.g., Automated exposure control, adjustment of the mA and/or kV according to patient size, use of iterative reconstruction technique) TECHNICAL DOCUMENTATION: JOB ID: [id number] [employer]- All Rights Reserved Reading location - IP/workstation name: [email or web address]
--- NOTE | 2018-04-16 18:46 | RADIOLOGY REPORT (SQ) ---
EXAM DESCRIPTION: CTA ABDOMEN/PELVIS W WO COMPLETED DATE/TIME: 04/16/2018 6:27 pm REASON FOR STUDY: abd pain with SOB, hx of PE COMPARISON: None. TECHNIQUE: CT scan of the abdominal aorta extending to the iliac bifurcation performed with and with out intravenous contrast using helical scanning technique with dynamic intravenous contrast injection . Images reviewed with lung, soft tissue, and bone windows. Reconstructed coronal and sagittal MPR im ages reviewed. All images stored on PACS. Advanced 3D imaging as volume rendering, MIPS, SSD performed? yes All CT scanners at this facility use dose modulation, iterative reconstruction, and/or weight based d osing when appropriate to reduce radiation dose to as low as reasonably achievable (ALARA). [facility]: Dose Right [facility]: CareDose [facility]: Dose Right [facility]: Teradose 4D [facility]: [employer] CONTRAST TYPE AND DOSE: contrast/concentration: Isovue 370.00 mg/ml; Total Contrast Delivered: 100.0 ml; Total Saline Delivered: 90.0 ml RENAL FUNCTION: BUN 6 creatinine 0.67 LIMITATIONS: None. FINDINGS: NON-CONTRASTED IMAGING: No significant renal or bladder calcifications. No other significa nt organ calcifications. POST-CONTRAST IMAGING: AORTA AND VESSELS: No aneurysm. No dissection. Renal arteries, SMA, celiac without stenosis. LUNG BASES: See report for CTA of the chest. LIVER: Diffuse hypoattenuation. SPLEEN: Splenomegaly. PANCREAS: No masses. No significant calcifications. No adjacent inflammation or peripancreatic fluid collections. Pancreatic duct not dilated. GALLBLADDER: Surgically absent. ADRENAL GLANDS: No significant masses or asymmetry. RIGHT KIDNEY AND URETER: No mass, calculi or urinary tract obstruction. LEFT KIDNEY AND URETER: No mass, calculi or urinary tract obstruction. RETROPERITONEUM: No retroperitoneal adenopathy, hemorrhage or masses. BOWEL AND PERITONEAL CAVITY: Questionable wall thickening versus nondistention of the right colon. APPENDIX: Not identified. ABDOMINAL WALL: No masses. No hernias. BONY STRUCTURES: No significant or acute findings. 3-D IMAGING: Confirms the above findings. OTHER: No other significant finding. IMPRESSION: 1. No abdominal aortic aneurysm, or dissection. No significant vascular abnormality. 2. Questionable thickening of the wall of the right colon versus mere nondistention. 3. Fatty infiltration of the liver. 4. Splenomegaly. TECHNICAL DOCUMENTATION: JOB ID: [id number] Quality ID # [id number]: Final reports with documentation of one or more dose reduction techniques (e.g., Au tomated exposure control, adjustment of the mA and/or kV according to patient size, use of iterative reconstruction technique) 2010 [employer]- All Rights Reserved Reading location - IP/workstation name: [email or web address]
[2018-04-16 19:42] VITALS: BP 138/88
== END 2018-04-16 19:43 | disposition home or self-care (01) ==
LOC: ER 15:04
DX: R10.84 Generalized abdominal pain (principal); K52.9 Noninfective gastroenteritis and colitis, unspecified; K75.81 Nonalcoholic steatohepatitis (NASH); R16.1 Splenomegaly, not elsewhere classified; R51 Headache; R10.11 Right upper quadrant pain; R10.12 Left upper quadrant pain; R10.32 Left lower quadrant pain; R11.2 Nausea with vomiting, unspecified; R06.02 Shortness of breath; F17.200 Nicotine dependence, unspecified, uncomplicated; I10 Essential (primary) hypertension; J45.909 Unspecified asthma, uncomplicated
CPT/HCPCS: 99284; 96374; 96361; 96375; 36415; 87086; 82553; 82550; 83605; 83690; 85025; 80053; 81001; 84484; 71275; 74174; J1200; J2765; J7030

== ENCOUNTER 2018-05-06 18:51 | Emergency (ER) | payer MEDICARE, MEDICAID ==
[2018-05-06 18:59] VITALS: BP 147/89
[2018-05-06] MEDS ORDERED: PREDNISONE 20 MG TABLET PO ONE (19:34)
[2018-05-06] MEDS ORDERED: IPRATROPIUM/ALBUTEROL 0.5-2.5 MG/3 ML AMPUL NEB ONE (19:34)
[2018-05-06] MEDS: ALBUTEROL SULFATE 0.083% NEB 2.5 MG/3 ML AMPUL NEB SCH ×2 (20:06→20:28)
--- NOTE | 2018-05-06 20:15 | RADIOLOGY REPORT (SQ) ---
EXAM DESCRIPTION: CHEST 2 VIEWS COMPLETED DATE/TIME: 05/06/2018 8:01 pm REASON FOR STUDY: cough congestion short of breath COMPARISON: 11/21/2017. EXAM PARAMETERS: NUMBER OF VIEWS: two views TECHNIQUE: Digital Frontal and Lateral radiographic views of the chest acquired. RADIATION DOSE: NA LIMITATIONS: none FINDINGS: LUNGS AND PLEURA: No opacities, masses or pneumothorax. No pleural effusion. MEDIASTINUM AND HILAR STRUCTURES: No masses or contour abnormalities. HEART AND VASCULAR STRUCTURES: Heart normal size. No evidence for failure. BONES: No acute findings. HARDWARE: None in the chest. OTHER: No other significant finding. IMPRESSION: NO ACUTE RADIOGRAPHIC FINDING IN THE CHEST. TECHNICAL DOCUMENTATION: JOB ID: [id number] [employer]- All Rights Reserved Reading location - IP/workstation name: [email or web address]
--- NOTE | 2018-05-06 20:49 | ER Document Report ---
ED Respiratory Problem - General Chief Complaint: Cold Symptoms Stated Complaint: CONGESTION Time Seen by Provider: 05/06/18 19:05 Mode of Arrival: Ambulatory Information source: Patient Notes: 52-year-old female presented ED for cough congestion green sputum when and no sore throat no fever and started on . Her is also in with same symptoms. Patient does smoke 2 packs per day. She is alert and oriented speaks in full sentences mildly short of breath with inspiratory wheezes. She has moderately dry mucous membranes and has been given fluids to drink while in the emergency room. She states she only drinks about 1 or 2 cups of water a day. Patient was instructed that she needs to greatly increase her fluid intake. TRAVEL OUTSIDE OF THE [place] IN LAST 30 DAYS: No - HPI Patient complains to provider of: Asthma, COPD, Cough, Short of breath Onset: Other - Duration: Continuous Initiating Event: URI Quality of pain: No pain Context: Hx asthma, Hx COPD, Smoker Short of Breath: Moderate Cough: Productive Sputum amount: Moderate Sputum color: Green Sputum consistency: Thick At home treatment: Bronchodilators Associated symptoms: Congestion, Cough, PND, Runny nose, Sinus pain/pressure, Short of breath, Sore Throat. denies: Chills, Fever Similar symptoms previously: Yes Recently seen / treated by doctor: No - Related Data Allergies/Adverse Reactions: No Known Allergies Allergy (Verified 05/06/18 19:23) Past Medical History - General Information source: Patient - Social History Smoking Status: Current Every Day Smoker Cigarette use (# per day): Yes - 2 packs per day Chew tobacco use (# tins/day): No Smoking Education Provided: Yes - 4 minutes Frequency of alcohol use: None Drug Abuse: None Lives with: Family Family History: Reviewed & Not Pertinent Patient has suicidal ideation: No Patient has homicidal ideation: No - Past Medical History Cardiac Medical History: Reports: Hx Hypertension Pulmonary Medical History: Reports: Hx Asthma, Hx Bronchitis, Hx COPD EENT Medical History: Reports: None Neurological Medical History: Reports: None Endocrine Medical History: Reports: None Renal/ Medical History: Reports: None Malignancy Medical History: Reports: Other - Stomach cancer GI Medical History: Reports: Hx Gastroesophageal Reflux Disease, Hx Colonoscopy , Hx Endoscopy, Other - Ventral hernia Musculoskeltal Medical History: Reports Hx Arthritis Skin Medical History: Reports None Psychiatric Medical History: Reports: Hx Depression, Hx Schizophrenia Traumatic Medical History: Reports: None Infectious Medical History: Reports: None Past Surgical History: Reports: Hx Section - x2, Hx Cholecystectomy Review of Systems - Review of Systems Constitutional: Recent illness EENT: Nose congestion, Nose discharge, Sinus pressure, Sinus discharge Cardiovascular: No symptoms reported Respiratory: Cough, Short of breath, Sputum, Wheezing Gastrointestinal: No symptoms reported Genitourinary: No symptoms reported Female Genitourinary: No symptoms reported Musculoskeletal: No symptoms reported Skin: No symptoms reported Hematologic/Lymphatic: No symptoms reported Neurological/Psychological: No symptoms reported Physical Exam - Vital signs Vitals: Temp Pulse Resp BP Pulse Ox 99.1 F 114 H 24 H 147/89 H 96 05/06/18 18:58 05/06/18 18:58 05/06/18 18:58 05/06/18 18:58 05/06/18 18:58 Interpretation: Hypertensive, Tachycardic, Tachypneic - General General appearance: Appears well, Alert - HEENT Head: Normocephalic, Atraumatic Eyes: Normal Pupils: PERRL Ears: Normal External canal: Normal Tympanic membrane: Normal Sinus: Tenderness. No: Swelling Nasal: Purulent discharge, Swelling Mouth/Lips: Normal Mucous membranes: Dry Pharynx: Post nasal drainage. No: Blood in hypopharynx, Erythema, Exudate, Peritonsillar abscess, Retropharyngeal abscess, Tonsillar hypertrophy, Uvular edema, Potential airway comprom. Neck: Anterior cervical chain - Respiratory Respiratory status: No respiratory distress Chest status: Nontender Breath sounds: Productive cough, Wheezing Chest palpation: Normal - Cardiovascular Rhythm: Regular Heart sounds: Normal auscultation Murmur: No - Abdominal Inspection: Normal Distension: No distension Bowel sounds: Normal Tenderness: Nontender Organomegaly: No organomegaly - Back Back: Normal, Nontender - Extremities General upper extremity: Normal inspection, Nontender, Normal color, Normal ROM , Normal temperature General lower extremity: Normal inspection, Nontender, Normal color, Normal ROM , Normal temperature, Normal weight bearing. No: Lindsey's sign - Neurological Neuro grossly intact: Yes Cognition: Normal Orientation: AAOx4 [place] Coma Scale Eye Opening: Spontaneous [place] Coma Scale Verbal: Oriented [place] Coma Scale Motor: Obeys Commands [place] Coma Scale Total: 15 Speech: Normal Motor strength normal: LUE, RUE, LLE, RLE Sensory: Normal - Psychological Associated symptoms: Normal affect, Normal mood - Skin Skin Temperature: Warm Skin Moisture: Dry Skin Color: Normal Course - Re-evaluation Re-evalutation: 05/06/18 22:24 Patient's x-rays were discussed with patient and written report given to her to follow-up with her primary doctor. Patient was treated with prednisone, albuterol, and DuoNeb in the emergency room. Dr. Alejo was consulted concerning discharge due to the elevated pulse respirations and blood pressure. As that would be okay to discharge the patient's home with prednisone and azithromycin due to their COPD and symptoms. She states that doxycycline would be better if the patient could afford it. Patient was discharged home with prescriptions for doxycycline and prednisone. Patient was instructed to follow- up with her primary doctor tomorrow to discuss use of a nebulizer machine at home instead of inhalers. After performing a Medical Screening Examination, I estimate there is LOW risk for ACUTE CORONARY SYNDROME, RESPIRATORY FAILURE, SEPSIS OR MENINGITIS, thus I consider the discharge disposition reasonable. I have reevaluated this patient multiple times and no significant life threatening changes are noted. The patient and I have discussed the diagnosis and risks, and we agree with discharging home with close follow-up. We also discussed returning to the Emergency Department immediately if new or worsening symptoms occur. We have discussed the symptoms which are most concerning (e.g., changing or worsening pain, trouble swallowing or breathing, neck stiffness, fever) that necessitate immediate return. - Vital Signs Vital signs: Temp Pulse Resp BP Pulse Ox 99.1 F 114 H 24 H 147/89 H 96 05/06/18 18:58 05/06/18 18:58 05/06/18 18:58 05/06/18 18:58 05/06/18 18:58 - Diagnostic Test Radiology reviewed: Image reviewed, Reports reviewed Discharge - Discharge Clinical Impression: COPD exacerbation URI (upper respiratory infection) Qualifiers: URI type: unspecified URI Qualified Code(s): J06.9 - Acute upper respiratory infection, unspecified Condition: Stable Disposition: HOME, SELF-CARE Additional Instructions: Chronic Obstructive Lung Disease You have chronic obstructive lung disease (COPD). The symptoms come from emphysema (damage to small airways, with trapping of air in large sacks in the lung) and chronic bronchitis (repeated infection and damage to larger airways). The cause is almost always cigarette smoking, although dust exposure, asthma, and infections contribute. You should avoid fumes, dust, and smoke (especially tobacco smoke). Your condition will flare from time to time. There is no cure, but the symptoms can be treated. Bronchodilators (asthma medicine) are often helpful. Antibiotics help when infection is present. When shortness of breath is severe, we may prescribe cortisone medication. If medicine doesn't help enough, we can arrange for you to have an oxygen tank at home. Notify your doctor at once if sputum becomes thick, foul, or bloody, if you develop a fever or chest pain, or if your shortness of breath worsens. UPPER RESPIRATORY ILLNESS: You have a viral infection of the respiratory passages -- a "cold." This common infection causes nasal congestion, drainage, and often sore throat and cough. It is highly contagious. The disease usually lasts about 10 to 14 days. There is no "cure" for the viral infection -- it must run its course. If there is a complication, such as bacterial infection in the nose, sinuses, middle ear, or bronchial tubes, antibiotics may be required. The antibiotics won't affect the virus. Drink plenty of fluids. A humidifier may help. An expectorant medication or decongestant may make you more comfortable. Use acetaminophen or ibuprofen for fever or aches. See the doctor if fever persists over two days, if there is any significant worsening of your symptoms, or if you simply fail to improve as expected. BRONCHOSPASM: You have tightness in the bronchial tubes, called bronchospasm. This often occurs with bronchial infections. Allergies, inhaled chemicals, and polluted or cold air can also provoke bronchospasm. It's more likely in patients with asthma in the family. Emergency treatment of bronchospasm may include adrenaline shots or bronchodilator aerosol. You may feel lightheaded and have a rapid pulse for an hour or two. Rest and get plenty of fluids. At home, we'll treat you with a bronchodilator inhaler. Antibiotics and corticosteroids may be required for some patients. Until you recover, avoid chemical fumes, dusts, pollens, and exercising in very cold or dry air. If you smoke, stop now!! If you develop a fever, increased wheezing, chest pain, or severe shortness of breath, you should contact the doctor immediately. Doxycycline Doxycycline (Vibramycin, Doryx) is an antibiotic of the tetracycline family. This type of drug is useful for infections of the respiratory tract and genital tract, and is sometimes used for intestinal infections. Unlike most tetracyclines, doxycycline can be taken with food. It is longer acting, and (usually) less prone to side effects than regular tetracycline. Tetracycline antibiotics can stain immature teeth and SHOULD NOT BE TAKEN BY CHILDREN, NURSING MOTHERS, OR WOMEN. Tetracyclines can make you more prone to sunburn. Abdominal cramping, nausea, and diarrhea are occasional side effects. Women may experience vaginal yeast infections. Call the doctor at once if you develop hives, itching, shortness of breath , or lightheadedness. COUGH-SUPPRESSANT & EXPECTORANT MEDICATION: You are to use a cough medication as needed for relief of symptoms. This medicine is a combination of an expectorant (to make the mucous thinner and more easily "coughed up") and a cough suppressant (to reduce the frequency of coughing). The cough-suppressant medicine is related to narcotics. You may experience mild nausea and sleepiness. Some patients who are very sensitive to narcotics may have stomach pain from this medicine. Taking the medicine with food reduces these side effects. Do not drive or work with machinery until you know how this medicine affects you. The expectorant should have no side effects. Iodine-containing expectorants (such as organidin) should not be taken by persons with active thyroid disease unless approved by your doctor. Call the doctor if you develop shortness of breath, hives, rash, itching, lightheadedness, or severe nausea and vomiting. INHALED BRONCHODILATORS: You have received a treatment of and/or prescription for an inhaled bronchodilator -- a medication which stimulates the airways in the lung to dilate. This improves the flow of air in asthma, bronchitis, and emphysema. These medicines have some similarity to adrenaline, and can cause similar side effects: shakiness, racing heart, and a sense of nervousness. These side effects decrease with time. Contact your doctor if these side effects are severe. Do not over-use the medicine. Too-frequent use of the inhaler may make it ineffective. Call your doctor if the inhaler is not controlling your symptoms at the prescribed doses. STEROID MEDICATION: You have been given an injection of or oral medicine of the cortisone/ steroid class. This medication is used to control inflammation or allergy. Gerardo t is usually only given for a short period of time, until the acute process subsides. There are usually no side effects from short-term use of cortisone-like medications. Some persons feel an increased sense of well-being and are not sleepy at bedtime. Long-term use of cortisone medications is best avoided, unless required for a severe condition. If your condition does not remit, or relapses after the course of corticosteroid medication, you should consult your physician. USE OF ACETAMINOPHEN (Tylenol): Acetaminophen may be taken for pain relief or fever control. It's much safer than aspirin, offering a wider range of "safe" dosages. It is safe during . Some brand names are Tylenol, Panadol, Datril, Anacin 3, Tempra, and Liquiprin. Acetaminophen can be repeated every four hours. The following are maximum recommended dosages: >89 pounds or adults 650 mg to 900 mg Acetaminophen can be repeated every four hours. Maximum dose not to exceed 4000 mg a day. SMOKING: If you smoke, you should stop smoking. The tar and chemicals in cigarette smoke are harmful. Smoking has been shown to cause: emphysema chronic bronchitis lung cancer mouth and throat cancer stomach and pancreas cancer premature aging defects In addition, smoking increases ear and lung infections in children of smokers. FOLLOW-UP CARE: If you have been referred to a physician for follow-up care, call the physician s office for an appointment as you were instructed or within the next two days. If you experience worsening or a significant change in your symptoms, notify the physician immediately or return to the Emergency Department at any time for re-evaluation. Prescriptions: Doxycycline Hyclate 100 mg PO BID #14 tablet Prednisone [Deltasone 20 mg Tablet] 3 tab PO DAILY 5 Days tablet Forms: Elevated Blood Pressure, Smoking Cessation Education Referrals: AL BROWN MD [Primary Care Provider] - Follow up tomorrow
== END 2018-05-06 20:55 | disposition home or self-care (01) ==
LOC: ER 18:51
DX: J44.1 Chronic obstructive pulmonary disease with (acute) exacerbation (principal); J06.9 Acute upper respiratory infection, unspecified; F17.210 Nicotine dependence, cigarettes, uncomplicated; I10 Essential (primary) hypertension; Z90.49 Acquired absence of other specified parts of digestive tract
CPT/HCPCS: 99406; 94640 ×2; 99283; 71046; A9270 ×3; J7512; J7620